=== PATIENT | female | born 1965 | race Caucasian/White ===

== ENCOUNTER 2024-12-30 08:52 | Emergency (ER) | payer BC, SELFPAY ==
[2024-12-30 09:28] VITALS: BP 128/69; PULSE 71; RESP 17; TEMP 36.9; O2SAT 99; BMI 21.7
--- NOTE | 2024-12-30 09:42 | PC.NURSE ---
Trace bright red blood noted in right nare, no active bleeding at this time. Removed clamp that patient arrived with to monitor if bleeding continues. Patient attempted afrin [employer]. 9yrs ago patient had cauterized right nare. Not on thinners. Reports visiting and it is dry
--- NOTE | 2024-12-30 11:11 | ED.EPISTAXIS ---
HPI - Epistaxis General Chief complaint: Nasal Problem Stated complaint: Nose Bleed >30 mins Time Seen by Provider: 12/30/24 10:58 Source: patient Mode of arrival: Family Vehicle History of Present Illness HPI Narrative: Patient is a 59-year-old female presenting today with epistaxis. She reports that many years ago she required cauterization. She lives in [place] is here visiting feels like the houses dry. Had significant bleeding from her right ear morning. She held pressure for 20 minutes and it did not stop so she came to the ED. she no history of hypertension no blood thinners. bleeding now stopped Related Data Allergies Allergy/AdvReac Type Severity Reaction Status Date / Time doxycycline Allergy Verified 12/30/24 09:33 Penicillins Allergy Hives Verified 12/30/24 09:33 Patient History Social History Smoking Status: Never smoker Smoking Status: Never smoker Exam Initial Vital Signs Initial Vital Signs: Vital Signs Temperature 98.5 F 12/30/24 09:28 Pulse Rate 71 12/30/24 09:28 Respiratory Rate 17 12/30/24 09:28 Blood Pressure 128/69 12/30/24 09:28 Pulse Oximetry 99 12/30/24 09:28 Oxygen Delivery Method Room Air 12/30/24 09:28 GENERAL: Well-appearing, well-nourished and in no acute distress. NOSE: No active bleeding no site of bleeding appreciated no septal irritation CARDIOVASCULAR: peripheral pulses in tact, cap refill <2 sec RESPIRATORY: No respiratory distress, speaks in full sentences without difficulty EXTREMITIES: Normal range of motion, no clubbing or edema. Neurovascularly intact NEUROLOGICAL: Cranial nerves II through XII grossly intact. Normal gait and speech. SKIN: Warm, dry, no petechiae, no rashes or lesions. Course Vital Signs Vital signs: Vital Signs - 8 hr 12/30/24 09:28 12/30/24 11:14 12/30/24 11:14 Temperature 98.5 F Pulse Rate 71 65 Respiratory Rate 17 18 Blood Pressure 128/69 132/69 132/69 Pulse Oximetry 99 98 Oxygen Delivery Method Room Air MDM - Epistaxis MDM Narrative Medical decision making narrative: 59-year-old female presenting today with epistaxis that has now resolved. She reports it did not bleed for quite a bit but was less than an hour. Says nasal clamp helped. She was given instructions about noise moisture Afrin and nasal clamp. She was still quite concerned about if it starts bleeding again. He currently has no active bleeding nor evidence of posterior bleed. Discharge Plan Departure Patient Disposition: Home Clinical Impression: Epistaxis Instructions: DI for Nosebleed Activity Restrictions/Additional Instructions: *You have been diagnosed with epistaxis *What to do: At this time I do recommend moisture in both nostrils Vaseline bacitracin can try Aquaphor May try Afrin couple squirts lots of pressure. It may take up to 60 minutes for nose to stop bleeding *Continue to take medications as directed *Follow up with your primary care provider in 2-3 days or call [phone] *Return to ER if you should have persistent bleeding despite above therapies blood, ongoing for more than 2 hours or any new, worsening or concerning symptoms Stand Alone Forms: Patient Portal/API/Survey
[2024-12-30 11:14] VITALS: BP 132/69; PULSE 65; RESP 18; O2SAT 98
== END 2024-12-30 11:27 | disposition home or self-care (01) ==
PROVIDERS: Emergency Provider Emergency Medicine
DX: R04.0 Epistaxis (principal)
CPT/HCPCS: 99281